=== PATIENT | female | born 1940 | race Caucasian/White ===

== ENCOUNTER → 2017-05-27 | Outpatient (CLI) | payer MEDICARE ==
[~2017-05-27] MED LIST: ASCO100029 PO; CITRTAB7 PO; CLON0.5T PO; COMMODE 3-IN-11 MIS; CPMMACHINE; CURCPOW PO; FISH1000 PO; GLUC1TAB24 PO; OCUVTAB4 PO; VITA10007 PO; VITATAB11 PO; WALKER WHEELS/F1 MIS
== END ==
LOC: CPRE 09:24
PROVIDERS: ATTEND Orthopaedic Surgery
DX: M17.12 Unilateral primary osteoarthritis, left knee (principal)

== ENCOUNTER 2017-06-12 08:22 | Inpatient (IN) | payer MEDICARE ==
[~2017-06-12] VITALS: Ht 162.6 cm; Wt 51.4 kg
[~2017-06-12 08:22] MED LIST changes: -COMMODE 3-IN-11 MIS; -CPMMACHINE; -VITA10007 PO; -WALKER WHEELS/F1 MIS
[2017-06-12] MEDS ORDERED: CHLORHEXIDINE GLUCONATE 2 % 1 PACK (2 CLOTHS) TOPICAL PRN (09:15)
[2017-06-12] MEDS ORDERED: LACTATED RINGER'S 1000 ML IV PRN (09:15)
[2017-06-12] MEDS ORDERED: METOPROLOL TARTRATE 25 MG TAB PO PRN (09:15)
[2017-06-12] MEDS ORDERED: POVIDONE IODINE 5% (ANTISEPSIS KIT) 4 APPLICATIONS EACH NARE PRN (09:15)
[2017-06-12] MEDS ORDERED: POVIDONE IODINE 7.5% SCRUB 118 ML BOTTLE TOPICAL SCH (09:15)
[2017-06-12] MEDS ORDERED: CHLORHEXIDINE GLUCONATE 4% SOLN 120 ML BTL TOPICAL SCH (09:15)
[2017-06-12] MEDS ORDERED: VANCOMYCIN 1 GM/200 ML INJ 200 ML IV SCH (09:15)
[2017-06-12] MEDS ORDERED: SODIUM CHLORID 0.9% 500 ML IV PRN (09:15)
[2017-06-12] MEDS ORDERED: SODIUM CHLORIDE 0.9% IV SCH ×2 (10:00→15:00)
[2017-06-12] MEDS ORDERED: ROPIVACAINE PERI-ARTICULAR INJECTION. P-ARTICULR SCH ×5 (10:00)
[2017-06-12] MEDS ORDERED: DEXAMETHASONE SOD PHOS PF 10 MG/ML VIAL IV PUSH ONE (10:00)
[2017-06-12] MEDS ORDERED: TRANEXAMIC ACID IV SCH ×2 (10:00→15:00)
[2017-06-12] MEDS ORDERED: MIDAZOLAM HCL 2 MG/2 ML VIAL ONE (10:12)
[2017-06-12] MEDS ORDERED: BUPIVACAINE LIPOSOME PF 1.3% 20 ML VIAL ONE (10:12)
[2017-06-12] MEDS ORDERED: LIDOCAINE HCL 1% PF 5 ML AMPULE ONE (10:22)
[2017-06-12] MEDS ORDERED: ceFAZolin 2 GM in NS 100 ML IV SCH (11:15)
[2017-06-12] MEDS ORDERED: GENTAMICIN SULFATE 80 MG/2 ML VIAL ONE (11:16)
[2017-06-12] MEDS ORDERED: LIDOCAINE HCL 1% PF 5 ML SYRINGE OTHER ONE (12:00)
[2017-06-12] MEDS ORDERED: ONDANSETRON HCL 4 MG/2 ML VIAL IV ONE (12:00)
[2017-06-12] MEDS ORDERED: PROPOFOL 200 MG/20 ML AMP IV ONE (12:00)
[2017-06-12] MEDS ORDERED: Post-op Orders (for Pharmacy) XX ONE (13:30)
[2017-06-12] MEDS: SODIUM CHLOR 0.9% 1000 ML INJ 1,000 ML IV SCH ×2 (13:30→23:30)
[2017-06-12] MEDS ORDERED: NALOXONE HCL 0.4 MG/ML AMP IV PUSH PRN (13:30)
[2017-06-12] MEDS ORDERED: BISACODYL 10 MG SUPP RECTAL PRN (13:30)
[2017-06-12] MEDS ORDERED: ALUMINUM/MAGNESIUM/SIMETH 30 ML CUP PO PRN (13:30)
[2017-06-12] MEDS ORDERED: diphenhydrAMINE HCL 50 MG/ML VIAL IV PUSH PRN (13:30)
[2017-06-12] MEDS ORDERED: MAGNESIUM HYDROXIDE SUSP 30 ML CUP PO PRN (13:30)
[2017-06-12] MEDS ORDERED: ONDANSETRON HCL 4 MG/2 ML VIAL IVP PRN (13:30)
[2017-06-12] MEDS ORDERED: MORPHINE SULFATE 2 MG/ML SYRINGE IV PUSH PRN (13:30)
--- NOTE | 2017-06-12 13:33 | PD.OP ---
cc: Jarrod Freed MD Operative Report Date of Surgery: Jun 12, 2017 Preoperative Diagnosis: Left knee severe osteoarthritis Postoperative Diagnosis: Same Procedure: Left total knee arthroplasty Anesthesia: Adductor canal block and general Surgeon: Jarrod Freed Mangle Tender Cloth(s): KARL Alexander The surgical procedure was assisted by my Advanced Registered Nurse Practitioner. My MOTOR AND GENERATOR BRUSH MAKER presence was necessary throughout this case for the manipulation and positioning of the surgical extremity. My MOTOR AND GENERATOR BRUSH MAKER was assisting me throughout the duration of this procedure. The skill set of an Advance Registered Nurse Practitioner was medically necessary to complete this procedure. During the surgical case, the surgical coordinator was working at the back table and the Advance Registered Nurse Practitioner was directly assisting me. Operation and Findings: IMPLANTS: DePuy Attune: Patella: size 35. Femur, posterior stabilized size 5. Tibia, rotating platform size 4. Tibial insert, rotating platform, posterior stabilized size 5 mm thickness. ESTIMATED BLOOD LOSS: 100 cc TOURNIQUET TIME: 44 minutes at 250 mmHg pressure. JUSTIFICATION FOR PROCEDURE: The patient has end-stage osteoarthritis to the knee. There is an attached conservative measures pathway form in the chart that describes the nonoperative measures that were undertaken prior to consideration of surgical management. The patient understood the risks and benefits of surgical management. See my office notes for further details PROCEDURE: The patient was brought back to the operative theatre. Adequate anesthesia was obtained. The patient received intravenous vancomycin and Ancef. The lower extremity was prepped and draped in the usual sterile fashion.The leg was exsanguinated, the tourniquet was raised. A standard anterior incision was performed followed by medial parapatellar arthrotomy was performed. End-stage arthritis was identified. Osteotomy of the patella was performed. We drilled holes for the patella. We trialed the patella component. We placed an intramedullary guide into the distal femur. We ultimately resected 13 mm off of the distal femur in 5 degrees of valgus. The remnants of the ACL and PCL were resected. Osteotomy of the proximal tibia was performed, resecting 5 mm off of the medial side. This was done with 3 degrees of posterior slope using an extramedullary guide. The distal end of the guide was placed in the mid aspect of the ankle. The femur was sized, and four chamfer cuts were completed in 3 of external rotation. We then cut the central box in the distal femur to replace the PCL. We resected the remnants of the menisci and removed osteophytes off of the femur and tibia. We then trialed the knee. We punched the tibia for the keel, and then used standard technique to cement in components. Excess cement was removed. We trialed the knee again and the final polyethylene thickness was chosen to provide extension to 0 degrees, and flexion of 140 degrees to gravity. The ligaments were appropriately balanced. Lateral release was necessary to obtain excellent patellofemoral tracking. The tourniquet was released and adequate hemostasis was obtained. An intra- articular injection of a ropivacaine cocktail was injected. The posterior knee was inspected for excess cement, which was removed. The final polyethylene was put into position after thorough irrigation. We then closed deep fascia with a #2 Stratafix followed by skin with 2-0 Vicryl followed by Dermabond mesh dressing. Postop plan is to weight-bear as tolerated. DVT prophylaxis will be performed with Libertad, OLIVER singh, early mobilization, and Lovenox followed by aspirin. Jarrod Freed MD Jun 12, 2017 13:33
[2017-06-12] MEDS ORDERED: DO NOT ADM ANY ANTICOAGULANT DRUGS PRN (14:02)
[2017-06-12] MEDS ORDERED: *morphine SULFATE 4 MG/ML PERIprocedure ONLY ONE ×3 (14:08→16:50)
[2017-06-12] MEDS ORDERED: *MEPERIDINE 25 MG INJ VIAL PERIprocedural Use ONLY ONE (14:08)
[2017-06-12] MEDS ORDERED: *morphine SULFATE 8 MG/ML PERIprocedure ONLY ONE (14:48)
--- NOTE | 2017-06-12 15:01 | RADRPT ---
EXAM DATE/TIME: 06/12/2017 15:20 [facility] COMPARISON: No previous studies available for comparison. INDICATIONS : Post-op left total knee replacement. MEDICAL HISTORY : None. SURGICAL HISTORY : None. ENCOUNTER: Initial ACUITY: 1 day PAIN SCORE: Non-responsive. LOCATION: Left knee FINDINGS: Postsurgical features of left knee arthroplasty. Arthroplasty components are in anatomic alignment. N o significant acute bony fracture. Immediate postsurgical soft tissue features. CONCLUSION: 1. Status post left knee arthroplasty in anatomic alignment without significant acute bony fracture. Ian Morfin MD on June 12, 2017 at 14:58 Board Certified Radiologist. This report was verified electronically.
[2017-06-12] MEDS: ACETAMINOPHEN/HYDROcodone 325 MG/5 MG TAB PO PRN ×2 (16:00→23:29)
--- NOTE | 2017-06-12 17:45 | HHI.DCPOC ---
Discharge Care Plan Diagnosis: (1) Primary localized osteoarthrosis, lower leg (2) Status post total knee replacement, left Your Health Problems Are: Difficulty with ADL Goals to Promote Your Health * To prevent worsening of your condition and complications * To maintain your health at the optimal level Directions to Meet Your Goals Take your medications as prescribed Follow your dietary instruction Follow activity as directed Keep your appointments as scheduled Take your immunizations and boosters as scheduled If your symptoms worsen call your PCP, if no PCP go to Urgent Care Center or Emergency Room Smoking is Dangerous to Your Health. Avoid second hand smoke Call the 24-hour hour crisis hotline for domestic abuse at Kimo Ponce Jun 12, 2017 17:45
--- NOTE | 2017-06-12 17:46 | HHI.FF ---
Face to Face Verification Diagnosis: (1) Primary localized osteoarthrosis, lower leg (2) Status post total knee replacement, left Physical Therapy Gait training, Transfer training, bed to chair Knee: Total knee Left LE Weight Bearing: WB as tolerated Left LE Range of Motion: Active ROM Nursing Nursing: Ayana smith Dressing Changes: Do not change dressing Additional Instructions First dressing change in the office. I have seen patient Doris Hawley on 06/12/17. My clinical findings support the need for the requested home health care services because: Limited ability to care for self High risk of falls I certify that my clinical findings support that this patient is homebound because: Post-op weakness Unsteady gait/balance Kimo Ponce Jun 12, 2017 17:46
[2017-06-12] MEDS ORDERED: COMMODE 3-IN-11 MIS (17:47)
[2017-06-12] MEDS ORDERED: CPMMACHINE (17:47)
[2017-06-12] MEDS ORDERED: WALKER WHEELS/F1 MIS (17:47)
[2017-06-12 18:15] VITALS: BP 143/63; PULSE 101; RESP 18; TEMP 97.2; O2SAT 98
[2017-06-12 20:00] VITALS: BP 116/57; PULSE 88; RESP 18; TEMP 97.5; O2SAT 100
[2017-06-12] MEDS ORDERED: ZOLPIDEM TARTRATE 5 MG TAB PO PRN (21:00)
[2017-06-13] VITALS: BP 105/63; PULSE 75; RESP 18; TEMP 97.8; O2SAT 98
[2017-06-13] MEDS: ACETAMINOPHEN/HYDROcodone 325 MG/5 MG TAB PO PRN ×5 (03:55→22:41)
[2017-06-13 04:00] VITALS: BP 104/51; PULSE 81; RESP 18; TEMP 97.7; O2SAT 99
[2017-06-13] MEDS ORDERED: DEXAMETHASONE SOD PHOS 20 MG/5 ML VIAL IV ONE (07:45)
[2017-06-13 07:56] LABS: HEMATOCRIT 32.2 % (35.0-46.0); HEMOGLOBIN 10.8 GM/DL (11.6-15.3); MEAN CORPUSCULAR HEMOGLOBIN 31.8 PG (27.0-34.0); MEAN CORPUSCULAR HGB CONC 33.5 % (32.0-36.0); MEAN PLATELET VOLUME 9.7 FL (7.0-11.0); PLATELET COUNT 134 TH/MM3 (150-450); RED BLOOD COUNT 3.39 MIL/MM3 (4.00-5.30); RED CELL DISTRIBUTION WIDTH 13.8 % (11.6-17.2); WHITE BLOOD COUNT 13.5 TH/MM3 (4.0-11.0)
[2017-06-13 08:00] VITALS: BP 113/54; PULSE 80; RESP 18; TEMP 97.8; O2SAT 100
[2017-06-13] MEDS: clonazePAM 0.5 MG TAB PO SCH (08:24)
[2017-06-13] MEDS: SODIUM CHLOR 0.9% 1000 ML INJ 1,000 ML IV SCH ×2 (09:30→19:30)
[2017-06-13 12:00] VITALS: BP 117/54; PULSE 93; RESP 18; TEMP 97.3; O2SAT 99
[2017-06-13] MEDS: ENOXAPARIN SODIUM 40 MG/0.4 ML SYRINGE SQ SCH (12:46)
--- NOTE | 2017-06-13 13:01 | PD.ORT.PN ---
Subjective Post Op Day #: 1 Subjective Remarks Patient is OOB in chair with mild to moderate left knee pain. Patient c/o being unable to dorsiflex the foot and toes. Objective Vitals Vital Signs Date Time Temp Pulse Resp B/P (MAP) Pulse Ox O2 Delivery O2 Flow Rate FiO2 06/13/17 08:00 97.8 80 18 113/54 (73) 100 06/13/17 04:00 97.7 81 18 104/51 (68) 99 06/13/17 00:00 97.8 75 18 105/63 (77) 98 06/12/17 20:00 97.5 88 18 116/57 (76) 100 06/12/17 18:15 97.2 101 18 143/63 (89) 98 06/12/17 17:59 87 16 117/68 (84) 100 Nasal Cannula 2 06/12/17 15:34 93 16 110/56 (74) 100 Nasal Cannula 2 06/12/17 14:45 97 16 111/57 (75) 100 Nasal Cannula 2 06/12/17 14:30 95 16 118/56 (76) 100 Nasal Cannula 2 06/12/17 14:15 92 16 123/58 (79) 100 Nasal Cannula 2 06/12/17 14:00 98.3 95 16 129/58 (81) 100 Nasal Cannula 2 I/O 06/12/17 06/12/17 06/12/17 06/13/17 06/13/17 06/13/17 07:00 15:00 23:00 07:00 15:00 23:00 Intake Total 900 ml Output Total 100 ml 700 ml Balance 800 ml -700 ml Intake IV Total 900 ml Output Urine Total 700 ml Estimated Blood Loss 100 ml Result Diagram: 06/13/17 0545 Imaging Last 24 hours Impressions Knee X-Ray 06/12/17 5520 Signed Impressions: Service Date/Time: Monday, June 12, 2017 15:20 - CONCLUSION: 1. Status post left knee arthroplasty in anatomic alignment without significant acute bony fracture. Ian Morfin MD Procedures Left TKA Objective Remarks Dressing is C/D/I. Patient has mild numbness to dorsum of foot but states this is improving. Patient unable to dorsiflex foot. 2+ pedal pulse. Calf is soft and nontender. SILT distally. Assessment & Plan Ortho Post Op Day #: 1 Problem List: Assessment and Plan POD #1: Leftt TKA Possible injury to peroneal nerve with subsequent foot drop. 1. WBAT LLE 2. Lovenox followed by ASA for DVT prophylaxis 3. Ice to the left knee PRN 4. Patient to stay in hospital to see if she improves with possible foot drop. Patient may require a multi podus boot if there is persistent weakness with dorsiflexion of the foot and ankle. Will reassess tomorrow. 5. F/U in the office with Dr. Freed or KARL Tristan as previously scheduled. Kimo Ponce Jun 13, 2017 13:01
[2017-06-13 16:00] VITALS: BP 122/59; PULSE 86; RESP 18; TEMP 98.2; O2SAT 96
[2017-06-13 19:36] VITALS: BP 119/58; PULSE 90; RESP 18; TEMP 98.5; O2SAT 98
[2017-06-13] MEDS: MULTIVITAMINS/MINERALS THERAPEUTIC TAB PO SCH (21:49)
[2017-06-13] MEDS: DOCUSATE SODIUM 100 MG CAP PO SCH (21:49)
[2017-06-14 00:49] VITALS: BP 115/58; PULSE 83; RESP 17; TEMP 98.1; O2SAT 94
[2017-06-14] MEDS: SODIUM CHLOR 0.9% 1000 ML INJ 1,000 ML IV SCH (05:30)
[2017-06-14 08:00] VITALS: BP 113/55; PULSE 87; RESP 18; TEMP 98.4; O2SAT 98
[2017-06-14] MEDS: MULTIVITAMINS/MINERALS THERAPEUTIC TAB PO SCH (08:55)
[2017-06-14] MEDS: ACETAMINOPHEN/HYDROcodone 325 MG/5 MG TAB PO PRN ×2 (08:55→13:06)
[2017-06-14] MEDS: DOCUSATE SODIUM 100 MG CAP PO SCH (08:55)
[2017-06-14] MEDS: clonazePAM 0.5 MG TAB PO SCH (08:55)
[2017-06-14 09:04] LABS: HEMATOCRIT 27.7 % (35.0-46.0); HEMOGLOBIN 9.4 GM/DL (11.6-15.3); MEAN CELL VOLUME 92.4 FL (80.0-100.0); MEAN CORPUSCULAR HEMOGLOBIN 31.4 PG (27.0-34.0); MEAN PLATELET VOLUME 9.7 FL (7.0-11.0); PLATELET COUNT 208 TH/MM3 (150-450); RED CELL DISTRIBUTION WIDTH 13.8 % (11.6-17.2)
[2017-06-14 09:50] VITALS: O2SAT 100
[2017-06-14 12:00] VITALS: BP 110/56; PULSE 92; RESP 18; TEMP 97.5; O2SAT 100
[2017-06-14] MEDS: ENOXAPARIN SODIUM 40 MG/0.4 ML SYRINGE SQ SCH (13:06)
--- NOTE | 2017-06-17 16:19 | HHI.DS ---
Discharge Summary Admission Date Jun 12, 2017 at 08:22 Discharge Date: Jun 14, 2017 Admitting Diagnosis Primary localized osteoarthritis of the lower extremity Status post total knee replacement, LEFT Diagnosis: (1) Primary localized osteoarthrosis, lower leg Diagnosis: Principal ICD Codes: M17.10 - Unilateral primary osteoarthritis, unspecified knee (2) Status post total knee replacement, left Diagnosis: Principal ICD Codes: Z96.652 - Presence of left artificial knee joint Procedures Left TKA Brief History This is a 77 year old female patient with severe osteoarthritis of the LEFT knee CBC/BMP: 06/14/17 0803 PE at Discharge Dressing is C/D/I. Patient has mild numbness to dorsum of foot but states this is improving. Patient unable to dorsiflex foot. 2+ pedal pulse. Calf is soft and nontender. SILT distally. Hospital Course The patient was admitted to the hospital with severe osteoarthritis of the LEFT knee for a LEFT total knee arthroplasty. The patient's surgery went well with no complication. The patient is weightbearing as tolerated. The patient is on a regular diet. The patient was placed on Lovenox initially and then will transition to a full strength aspirin for DVT prophylaxis. The patient was discharged home with home health and will follow up in the office with Dr. Freed or KARL Tristan as previously scheduled. Pt Condition on Discharge: Stable Discharge Disposition: Disch w/ Home Health Serv Discharge Instructions Diet Instructions: As Tolerated, No Restrictions Activities You Can Perform: Weight Bearing as Rosmery Activities to Avoid: Strenuous Activity Follow up Referrals: Orthopedics with Jarrod Freed MD New Medications: Commode 3-in-1 (Commode 3-in-1) 1 Mis Mis EA .XX DIRECTED, #1 0 Refills CPM-Continuous Passive Motion Machine (CPM-Continuous Passive Motion Machine) 1 Ea Device EA .XX DIRECTED, #1 0 Refills Walker with Front Wheels (Walker with Front Wheels) 1 Mis Mis EA .XX DIRECTED, #1 0 Refills Continued Medications: Ascorbic Acid (Vitamin C) 1,000 Mg Tablet.er 1 TAB PO DAILY B-Complex Vitamins (Vitamin B Complex) 1 Tab 1 TAB PO DAILY Calcium Citrate-Vitamin D (Citracal + D3 Maximum) 315-250 Mg-Unit Tab 1 TAB PO BID for Calcium Supplement, #100 TAB 0 Refills Clonazepam (Clonazepam) 0.5 Mg Tab 0.5 MG PO DAILY, #60 TAB 0 Refills Multiple Vitamins W/ Minerals (Preservision Areds) 1 Tab 1 TAB PO BID for Nutritional Supplement, TAB 0 Refills Discontinued Medications: Luixsphbwjn-Ybzjhlhmfil-Lexssj (Move Free Joint Health Ad) 1 Tab Tab PO BID Turmeric (Curcuma Longa) (Bulk (Curcumin) 1 Pow Pow 1 CAP PO DAILY Kimo Ponce Jun 17, 2017 16:19
== END 2017-06-14 14:36 | disposition home health service (06) | DRG 470 ==
LOC: HSDI 08:22 → EDSTATUS 11:30 → N06B 17:48
PROVIDERS: ADMIT Orthopaedic Surgery; ATTEND Orthopaedic Surgery
PROC: 3E0T3BZ Introduction of Anesthetic Agent into Peripheral Nerves and Plexi, Percutaneous Approach (ICD-10-PCS; 2017-06-12)
PROC: 0SRD0J9 Replacement of Left Knee Joint with Synthetic Substitute, Cemented, Open Approach (ICD-10-PCS; principal; 2017-06-12 11:42)
DX: M17.12 Unilateral primary osteoarthritis, left knee (principal); M25.762 Osteophyte, left knee; M81.0 Age-related osteoporosis without current pathological fracture; M54.32 Sciatica, left side; E78.5 Hyperlipidemia, unspecified; F32.9 Major depressive disorder, single episode, unspecified; F41.9 Anxiety disorder, unspecified
CPT/HCPCS: 73560; 85027; 86850; 86900; 86901; 94150; C1776; C9290; J0690; J0735; J1100; J1580; J1650; J1885; J2175; J2250; J2270; J2405; J2795; J3010; J3370; J7030; J7120; L1830

== ENCOUNTER 2017-06-20 18:23 | Emergency (ER) | payer MEDICARE ==
[~2017-06-20] VITALS: Ht 162.6 cm; Wt 51.0 kg
[~2017-06-20 18:23] MED LIST changes: +COMMODE 3-IN-11 MIS; +CPMMACHINE; -CURCPOW PO; -FISH1000 PO; -GLUC1TAB24 PO; +WALKER WHEELS/F1 MIS
[2017-06-20 18:36] VITALS: BP 112/56; PULSE 108; RESP 24; TEMP 98.3; O2SAT 100
--- NOTE | 2017-06-20 19:27 | PD ---
HPI Chief Complaint: Edema Time Seen by Provider: 19:19 Travel History International Travel<30 days: No Contact w/Intl Traveler<30days: No Traveled to known affect area: No History of Present Illness HPI 77 y/o female presents with left leg swelling over the past day. She states she had a knee replacement with Dr. Freed last Saturday. She states that she has been taking her Lovenox injections like she should. She states that the bruising around her leg has been like it has since the surgery. Quality is swollen. Severity is progressive. Duration is one day. She denies any other concurrent complaints. She denies specific modifying factors. PFSH Past Medical History Anxiety: Yes Cancer: No Cardiovascular Problems: No Diabetes: No Diminished Hearing: No Endocrine: No Genitourinary: No Hepatitis: No Hiatal Hernia: No Immune Disorder: No Musculoskeletal: Yes (OSTEOPENIA) Neurologic: No Psychiatric: Yes (ANXIETY) Reproductive: Yes (HYSTERECTOMY AT 34 YOA) Respiratory: No Thyroid Disease: No Past Surgical History Abdominal Surgery: No AICD: No Body Medical Devices: METAL PLATE AND 2 SCREWS LEFT WRIST Cardiac Surgery: No Ear Surgery: No Endocrine Surgery: No Eye Surgery: Yes ( CATARACT EXTRACTION) Genitourinary Surgery: No Gynecologic Surgery: Yes (HYSTERECTOMY ) Hysterectomy: Yes (1982) Joint Replacement: No Oral Surgery: Yes (TONSILLECTOMY) Pacemaker: No Thoracic Surgery: No Tonsillectomy: Yes (62 YRS AGO) Social History Alcohol Use: Yes (1 GLASS OF WINE WITH DINNER 5 TIMES PER WEEK) Tobacco Use: No Substance Use: No Allergies-Medications (Allergen,Severity, Reaction): Coded Allergies: mupirocin (Unverified Allergy, Mild, 06/20/17) cephalexin (Unverified Allergy, Unknown, LONG AGO, 06/20/17) alendronate sodium (Unverified Adverse Reaction, Severe, LEG CRAMPS, ) Reported Meds & Prescriptions Reported Meds & Active Scripts Active Walker with Front Wheels (Device) 1 Mis Mis Ea .XX DIRECTED CPM-Continuous Passive Motion Machine 1 Ea Device Ea .XX DIRECTED Commode 3-in-1 (Device) 1 Mis Mis Ea .XX DIRECTED Reported Vitamin C (Ascorbic Acid) 1,000 Mg Tablet.er 1 Tab PO DAILY Vitamin B Complex (B-Complex Vitamins) 1 Tab 1 Tab PO DAILY Clonazepam 0.5 Mg Tab 0.5 Mg PO DAILY Preservision Areds (Multiple Vitamins W/ Minerals) 1 Tab 1 Tab PO BID Citracal + D3 Maximum (Calcium Citrate-Vitamin D) 315-250 Mg-Unit Tab 1 Tab PO BID Review of Systems Except as stated in HPI: all other systems reviewed are Neg Physical Exam Narrative GENERAL: 77 y/o female in no apparent distress SKIN: Bruising noted to left leg without isolated hematoma HEAD: Atraumatic. Normocephalic. EYES: Pupils equal and round. No scleral icterus. No injection or drainage. ENT: No nasal bleeding or discharge. Mucous membranes pink and moist. NECK: Trachea midline. CARDIOVASCULAR: Regular rate and rhythm. RESPIRATORY: No accessory muscle use. No increased effort. GASTROINTESTINAL: Abdomen soft, non-tender, nondistended. MUSCULOSKELETAL: No obvious deformities. No clubbing. No cyanosis. Patient has nonpitting edema noted to entire left leg, neurovascularly intact, compartment soft NEUROLOGICAL: Awake and alert. No obvious cranial nerve deficits. Motor grossly within normal limits. Normal speech. PSYCHIATRIC: Appropriate mood and affect; insight and judgment normal. Data Data Last Documented VS Vital Signs Date Time Temp Pulse Resp B/P (MAP) Pulse Ox O2 Delivery O2 Flow Rate FiO2 06/20/17 21:18 94 14 122/58 (79) 95 Room Air 06/20/17 18:36 98.3 Orders Orders Us Leg Venous Doppler (06/20/17 19:19) Complete Blood Count With Diff (06/20/17 19:19) Basic Metabolic Panel (Bmp) (06/20/17 19:19) Act Partial Throm Time (Ptt) (06/20/17 19:19) Prothrombin Time / Inr (Pt) (06/20/17 19:19) Iv Access Insert/Monitor (06/20/17 19:19) Ecg Monitoring (06/20/17 19:19) Oximetry (06/20/17 19:19) Ed Discharge Order (06/20/17 21:11) Labs Laboratory Tests Test 06/20/17 19:25 White Blood Count 8.7 TH/MM3 Red Blood Count 2.60 MIL/MM3 Hemoglobin 8.6 GM/DL Hematocrit 24.9 % Mean Corpuscular Volume 95.7 FL Mean Corpuscular Hemoglobin 33.2 PG Mean Corpuscular Hemoglobin Concent 34.7 % Red Cell Distribution Width 14.5 % Platelet Count 378 TH/MM3 Mean Platelet Volume 8.4 FL Neutrophils (%) (Auto) 62.7 % Lymphocytes (%) (Auto) 24.8 % Monocytes (%) (Auto) 10.6 % Eosinophils (%) (Auto) 1.2 % Basophils (%) (Auto) 0.7 % Neutrophils # (Auto) 5.5 TH/MM3 Lymphocytes # (Auto) 2.2 TH/MM3 Monocytes # (Auto) 0.9 TH/MM3 Eosinophils # (Auto) 0.1 TH/MM3 Basophils # (Auto) 0.1 TH/MM3 CBC Comment DIFF FINAL Differential Comment Prothrombin Time 10.1 SEC Prothromb Time International Ratio 1.0 RATIO Activated Partial Thromboplast Time 24.9 SEC Blood Urea Nitrogen 9 MG/DL Creatinine 0.62 MG/DL Random Glucose 93 MG/DL Calcium Level 8.9 MG/DL Sodium Level 136 MEQ/L Potassium Level 4.8 MEQ/L Chloride Level 104 MEQ/L Carbon Dioxide Level 25.2 MEQ/L Anion Gap 7 MEQ/L Estimat Glomerular Filtration Rate 93 ML/MIN MDM Medical Decision Making Medical Screen Exam Complete: Yes Emergency Medical Condition: Yes Medical Record Reviewed: Yes (Past history confirmed) Interpretation(s) CBC & BMP Diagram 06/20/17 19:25 Calcium Level 8.9 Last 24 hours Impressions Lower Extremity Ultrasound 06/20/171918 Signed Impressions: Service Date/Time: , June 20, 2017 19:51 - CONCLUSION: Normal examination. Emory Wakefield MD Differential Diagnosis DVT, postop swelling, anemia Narrative Course will check blood work, ultrasound and reevaluate Ultrasound without DVT, patient has anemia which is similar to prior and she is currently asymptomatic. This will need to be followed closely outpatient. Offered to call Dr. Freed and patient states she will follow with him first thing tomorrow morning and feels comfortable with that plan. Patient denies any new complaints. Patient happy with care, all questions answered. Patient knows that follow up is incumbent on them and to return to the emergency room immediately if new or worsening symptoms develop. Patient given strict return precautions, vitals reviewed and are normal, agrees to further workup as an outpatient. Diagnosis Primary Impression: Leg edema, left Additional Impression: Anemia Qualified Codes: D64.9 - Anemia, unspecified Patient Instructions: General Instructions Additional Instructions: elevate leg at rest, return as needed, follow with dr arthur aly as scheduled Med/Other Pt SpecificInfo: No Change to Meds Disposition: 01 DISCHARGE HOME Condition: Stable Aby Rodriguez MD Jun 20, 2017 19:27
[2017-06-20 19:36] VITALS: BP 136/61; PULSE 96; RESP 16; O2SAT 99
[2017-06-20 20:19] LABS: AUTOMATED NEUTROPHIL # 5.5 TH/MM3 (1.8-7.7); BASOPHIL # 0.1 TH/MM3 (0-0.2); BASOPHIL % 0.7 % (0.0-2.0); EOSINOPHIL # 0.1 TH/MM3 (0-0.4); EOSINOPHIL % 1.2 % (0.0-4.0); HEMATOCRIT 24.9 % (35.0-46.0); HEMOGLOBIN 8.6 GM/DL (11.6-15.3); LYMPH % 24.8 % (9.0-44.0); LYMPHOCYTE # 2.2 TH/MM3 (1.0-4.8); MEAN CELL VOLUME 95.7 FL (80.0-100.0); MEAN CORPUSCULAR HEMOGLOBIN 33.2 PG (27.0-34.0); MEAN CORPUSCULAR HGB CONC 34.7 % (32.0-36.0); MEAN PLATELET VOLUME 8.4 FL (7.0-11.0); MONO % 10.6 % (0.0-8.0); MONOCYTE # 0.9 TH/MM3 (0-0.9); NEUT % 62.7 % (16.0-70.0); PLATELET COUNT 378 TH/MM3 (150-450); RED CELL DISTRIBUTION WIDTH 14.5 % (11.6-17.2); WHITE BLOOD COUNT 8.7 TH/MM3 (4.0-11.0)
--- NOTE | 2017-06-20 20:22 | RADRPT ---
EXAM DATE/TIME: 06/20/2017 19:51 [facility] COMPARISON: No previous studies available for comparison. INDICATIONS : Left leg swelling. MEDICAL HISTORY : Hearing loss. Anxiety. Shingles. Osteopenia. SURGICAL HISTORY : Tonsillectomy. Hysterectomy. Cataract removal. Left wrist ORIF. Left knee replacement last . ENCOUNTER: Initial ACUITY: 2 day PAIN SCORE: 7/10 LOCATION: Left leg. TECHNIQUE: Venous ultrasound of the leg was performed from the inguinal ligament to the proximal calf. Real-jacquelin e, color Doppler and spectral tracing, compression and augmentation techniques were used. FINDINGS: There is normal compressibility of the deep venous system from the inguinal region to the proximal ca lf. No echogenic clot is seen in the lumen of the common femoral, femoral, popliteal, and posterior tibial veins. There is a normal response of the venous system to proximal and distal augmentation an d respiration. CONCLUSION: Normal examination. Emory Wakefield MD on June 20, 2017 at 20:19 Board Certified Radiologist. This report was verified electronically.
[2017-06-20 20:36] LABS: PROTHROMBIN TIME - PATIENT 10.1 SEC (9.8-11.6)
[2017-06-20 20:41] LABS: BICARBONATE 25.2 MEQ/L (21.0-32.0); CALCIUM 8.9 MG/DL (8.5-10.1); CREATININE 0.62 MG/DL (0.50-1.00)
[2017-06-20 21:18] VITALS: BP 122/58; PULSE 94; RESP 14; O2SAT 95
== END 2017-06-20 21:32 | disposition home or self-care (01) ==
LOC: NEPE 18:23
DX: R60.0 Localized edema (principal); D64.9 Anemia, unspecified
CPT/HCPCS: 80048; 85025; 85610; 85730; 93971; 99284